=== PATIENT | female | born 1990 | race African-American/Black ===

== ENCOUNTER 2017-10-03 08:04 | Emergency (ER) | payer SELFPAY ==
[~2017-10-03] VITALS: Ht 162.6 cm; Wt 80.0 kg
[2017-10-03] MEDS ORDERED: PROAIR (08:10)
[2017-10-03] MEDS ORDERED: ALBU6.7H IH (08:10)
[2017-10-03] MEDS ORDERED: IPRATROPIUM BROMIDE (0.02%) 0.5MG/2.5ML NEB HHN STA (08:41)
[2017-10-03] MEDS ORDERED: METHYLPREDNISOLONE SOD SUCC 125 MG/2 ML VIAL IM STA (08:41)
[2017-10-03] MEDS ORDERED: ALBUTEROL (0.083%) 2.5MG/3ML NEB HHN STA (08:41)
[2017-10-03 10:35] LABS: CLARITY URINE CLEAR (CLEAR); COLOR URINE YELLOW (YELLOW); KETONES URINE NEGATIVE (NEGATIVE); LEUKOCYTE ESTERASE URINE 1+ (NEGATIVE); NITRITE URINE NEGATIVE (NEGATIVE); OCCULT BLOOD URINE NEGATIVE (NEGATIVE); PROTEIN URINE NEGATIVE (NEGATIVE); SPECIFIC GRAVITY URINE 1.006 (1.005-1.030); UROBILINOGEN URINE 0.2 E.U./dL (0.2-1.0)
[2017-10-03 11:51] VITALS: BP 106/70
== END 2017-10-03 11:54 | disposition home or self-care (01) ==
LOC: ER 08:04
DX: J45.41 Moderate persistent asthma with (acute) exacerbation (principal); R03.0 Elevated blood-pressure reading, without diagnosis of hypertension
CPT/HCPCS: 81001; 81025; 94640; 96372; 99283; J2930; Z7610